=== PATIENT | male | born 1950 | race Caucasian/White ===

== ENCOUNTER 2024-12-17 10:16 | Emergency (ER) | payer MEDICARE, MEDICAID ==
[~2024-12-17] VITALS: Ht 167.6 cm; Wt 49.1 kg
[~2024-12-17 10:16] MED LIST: BACTRIM DS TAB1 EACH PO; CLINDAMYCIN HC150 MG PO; KEFLEX500 MG PO; NORCO 5-325 TA1 EACH PO
[2024-12-17 11:25] VITALS: BP 118/74
== END 2024-12-17 11:25 | disposition home or self-care (01) ==
LOC: ED 10:16
DX: S60.211A Contusion of right wrist, initial encounter (principal); F17.200 Nicotine dependence, unspecified, uncomplicated; W01.0XXA Fall on same level from slipping, tripping and stumbling without subsequent striking against object, initial encounter
CPT/HCPCS: 73110; 73130; 99283